=== PATIENT | female | born 1935 | race Caucasian/White ===

== ENCOUNTER 2023-06-25 15:39 | Observation (INO) | payer MEDICARE, SELFPAY ==
[2023-06-25] VITALS (18 sets, daily range): BP systolic 126–149; BP diastolic 55–75; PULSE 75–90; RESP 12–18; TEMP 36.4–37.5; O2SAT 95–100; BMI 18.9
--- NOTE | ~2023-06-25 | CT_ITS ---
EXAMINATION: CT brain wo con DATE: 06/25/2023 17:40 INDICATION: AMS . TECHNIQUE: Computed tomography (CT) of the head was performed without intravenous contrast. The mA wa s adjusted according to patient size. Iterative reconstruction technique was employed. The dose-lengt h product was 681.00 mGy-cm. COMPARISON: None. FINDINGS: No acute intracranial hemorrhage or extra-axial fluid collection. No hydrocephalus, mass, or herniation. No acute ischemic infarct. Unremarkable dural venous sinus attenuation. No acute osseous abnormality. The aerated spaces are clear. Moderate atrophy and chronic white matter change. Atherosclerotic intracranial calcification. Bilater al lens replacements. IMPRESSION: No acute intracranial process. Reviewed, dictated and finalized at location K. RONMENTAL SERVICES TECHNICIAN
--- NOTE | ~2023-06-25 | CT_ITS ---
EXAMINATION: CT cervical spine wo con DATE: 06/25/2023 20:24 INDICATION: neck pain TECHNIQUE: Computed tomography (CT) of the cervical spine was performed without intravenous contrast. Automated exposure control and iterative reconstruction technique were employed. The dose-length pro duct was 152.22 mGy-cm. COMPARISON: None. FINDINGS: Vertebral Body Alignment: Intact. Craniocervical and atlantoaxial alignment: Moderate degenerative change. Alignment intact. Osseous structures/fracture: No evidence of a lytic or blastic process in the visualized spine. No e vidence of acute fracture. Chronic appearing type II odontoid fracture. Cervical soft tissues: The paraspinal soft tissues planes are maintained. Degenerative changes: No significant degenerative changes. IMPRESSION: Chronic appearing type II odontoid fracture. No acute fracture or traumatic malalignment in the cervical spine. Reviewed, dictated and finalized at location K. UCT TECHNOLOGY SCIENTIST
--- NOTE | ~2023-06-25 | XR_ITS ---
EXAMINATION: XR chest 1V portable Exam Date/Time: 06/25/2023 16:05 PIERCE AND SHAVE PRESS OPERATOR HISTORY: chest pain Comparison: None. RESULT: Lines, tubes, and devices: Surgical clips over the right upper quadrant. Lungs and pleura: Senescent changes, otherwise clear. Cardiomediastinal silhouette: Stable. Other: No acute osseous or upper abdominal finding. IMPRESSION: No acute cardiopulmonary process. Reviewed, dictated and finalized at location K. CE AND SHAVE PRESS OPERATOR
--- NOTE | ~2023-06-25 | CT_ITS ---
EXAMINATION: CTA brain carotid DATE: 06/25/2023 20:25 INDICATION: AMS TECHNIQUE: Computed tomographic angiography (CTA) of the head and neck was performed with 100 mL Omni paque-350 intravenous contrast. Automated exposure control and iterative reconstruction technique wer e employed. The dose-length product was 1153.22 mGy-cm. Maximum intensity projection and volume rende red 3D-reconstructions were created by the technologist on a separate workstation. COMPARISON: CT brain same date. FINDINGS: CTA HEAD: No large vessel occlusion, aneurysm, high flow vascular malformation, nidus or extravasation. Patent cerebral veins. Symmetric parenchymal enhancement. CTA NECK: Aortic arch and proximal great vessels: Minimal atherosclerotic calcifications at the visualized aort ic arch and proximal great vessels. Normal arch anatomy. Right common carotid, carotid bifurcation, and internal carotid artery: No plaque.There is 0% stenosi s of the proximal right internal carotid artery relative to normal distal artery lumen diameter (NASC ET criteria). Left common carotid, carotid bifurcation, and internal carotid artery: Minimal calcified plaque.There is 0% stenosis of the proximal left internal carotid artery relative to normal distal artery lumen d iameter (NASCET criteria). Vertebral arteries: No significant plaque or stenosis. Other findings: Chronic appearing type II odontoid fracture. Bilateral lens replacements. IMPRESSION: No acute large vessel infarct. No significant carotid or vertebral artery stenosis. Reviewed, dictated and finalized at location K. RT UNLOADER
--- NOTE | 2023-06-25 15:41 | ECG_ITS ---
Measurements Intervals [place] Rate: 77 P: 51 AL: 192 QRS: -35 QRSD: 94 T: 75 QT: 392 QTc: 444 Interpretive Statements SINUS RHYTHM WITH OCCASIONAL SUPRAVENTRICULAR PREMATURE COMPLEXES POOR R-WAVE PROGRESSION, POSSIBLE OLD aNTERIOR MYOCARDIAL INFARCTION INFERIOR MYOCARDIAL INFARCTION , PROBABLY OLD [40+ ms Q WAVE AND/OR ST/T ABNORMALITY IN II/aVF] NO PREVIOUS ECG AVAILABLE FOR COMPARISON Electronically Signed On 06-25-2023 20:19:25 HYPERBARIC TECHNOLOGIST by Vivian Wright M.D.
[2023-06-25 16:25] LABS: Basophils Percent Auto 0.1 % (0.2-1.2); Hematocrit 48.8 % (37.0-47.0); Hemoglobin 15.6 g/dL (12.0-15.0); Immature Granulocyte Absolute 0.02 K/mm3 (0.00-0.031); Immature Granulocyte Percent A 0.2 % (0-0.5); Lymphocytes Absolute Auto 0.83 K/mm3 (0.9-3.2); Lymphocytes Percent Auto 9.4 % (18.3-44.2); Mean Corpuscular Hemoglobin 28.8 pg (26-34); Mean Corpuscular Volume 90.2 fl (80-100); Mean Platelet Volume 10.3 fl (7.4-10.4); Monocytes Absolute Auto 0.7 K/mm3 (0.1-0.6); Monocytes Percent Auto 8.3 % (2.6-8.5); Neutrophils Absolute Auto 7.2 K/mm3 (1.3-6.7); Platelet Count Result 227 k/mm3 (150-375); Red Blood Count 5.41 M/mm3 (4.2-5.4); Red Cell Distribution Width 13.4 % (11.5-14.5); White Blood Count 8.8 K/mm3 (4.5-10.0)
[2023-06-25 16:37] LABS: Prothrombin Time 13.8 Seconds (11.1-14.7)
[2023-06-25 16:38] LABS: Partial Thromboplastin Time 32.8 SECONDS (22.3-36.8)
[2023-06-25 16:39] LABS: Alanine Aminotransferase 21 U/L (6-35); Albumin Level 4.4 g/dL (3.5-5.1); Alkaline Phosphatase 75 U/L (38-126); Anion Gap 11 mmol/L (8-16); Aspartate Amino Transferase 30 U/L (14-36); Bilirubin,Total 0.9 mg/dL (0.2-1.3); Blood Urea Nitrogen 17 mg/dL (7-17); Calcium 8.9 mg/dL (8.4-10.2); Carbon Dioxide 31 mmol/L (22-30); Chloride 98 mmol/L (98-107); Estimated CRCL calculation 37 ml/min; Estimated Glomerular Filt Rate > 60; Glucose 115 mg/dL (65-110); Potassium 3.7 mmol/L (3.4-5.0); Sodium 140 mmol/L (137-145)
[2023-06-25 16:51] LABS: Troponin I < 0.012 ng/mL (0.000-0.034)
[2023-06-25 17:42] LABS: Appearance Urine Clear (Clear); Bilirubin Urine Negative (Negative); Blood Urine Negative (Negative); Color Urine Yellow (Yellow); Glucose Urine UA Negative (Negative); Ketones Urine 1+ mg/dL (Negative); Leukocyte Esterase Ur Negative LEU/UL (Negative); Nitrate Urine Negative (Negative); Protein Urine Negative (Negative); Specific Grav Ur 1.022 (1.001-1.035); Urobilinogen Urine 0.2 mg/dL (<2.0); pH Urine 5.5 (5.0-9.0)
[2023-06-25 17:46] LABS: CRP 1.4 mg/dL (<1.0)
[2023-06-25 17:51] LABS: Add Urine Microscopic? NO
[2023-06-25] MEDS: SODIUM CHLORIDE 0.9% IV 500 ML 999 ML IV CONT (17:53)
--- NOTE | 2023-06-25 17:57 | ED.AMS ---
HPI - Altered Mental Status General Chief Complaint: Altered Mental Status Stated Complaint: lethargic Time Seen by Provider: 06/25/23 17:13 Source: patient and EMS Mode of arrival: EMS Limitations: altered mental status History of Present Illness HPI narrative: This is a 87 year old female that presents to the ER for altered mental status. Patient has been lethargic and not acting herself today. She has no complaints. Is unable to give any history. Related Data Home Medications Medication Instructions Recorded Confirmed divalproex 125 mg capsule,delayed 125 mg PO DAILY 06/25/23 06/25/23 release sprinkle (Depakote Sprinkles) donepezil 10 mg tablet 10 mg PO HS 06/25/23 06/25/23 estradiol 0.01% (0.1 mg/gram) 0.01 applic vaginal DAILY 06/25/23 06/25/23 vaginal cream (Estrace) hydrochlorothiazide 12.5 mg tablet 12.5 mg PO DAILY 06/25/23 06/25/23 memantine 10 mg tablet (Namenda) 10 mg PO DAILY 06/25/23 06/25/23 potassium chloride 20 mEq 20 meq PO DAILY 06/25/23 06/25/23 tablet,extended release(part/cryst) (Klor-Con M) Allergies Allergy/AdvReac Type Severity Reaction Status Date / Time No Known Allergies Allergy Verified 06/25/23 15:59 Review of Systems Review of Systems: ROS unobtainable: Yes unobtainable due to mental status PMFSH Past Medical History Medical History (Updated 06/25/23 @ 22:33 by Marilyn Becerra PA-C) Dementia Hypertension Surgical History Surgical History (Updated 06/25/23 @ 21:15 by Yesica Desir PA-C) Surgical history unknown Family History Family History (Updated 06/25/23 @ 21:15 by Yesica Desir PA-C) Other Family history unknown Social History Social History (Updated 06/25/23 @ 21:16 by Yesica Desir PA-C) Social History: Surrogate medical decision maker: Davian Nam, son. Code status: Do not resuscitate, comfort focused care. Smoking status: Unknown if ever smoked Alcohol intake: unknown Substance use: unknown Additional living arrangements comments: Resident at [facility]. Exam Narrative: GENERAL: Elderly, lethargic, and in no acute distress. HEAD: Normocephalic, atraumatic. EYES: PERRLA and EOMI. ENT: Nares clear, no rhinorrhea or epistaxis. Mucous membranes moist. Oropharynx without tonsillar hypertrophy exudate or other lesions. Bilateral TMs pearly donnelly non-bulging NECK: Nuchal rigidity. No adenopathy or masses. CHEST: Clear to auscultation. No respiratory distress. No wheezes rales or rhonchi HEART: Regular rate and rhythm. No murmur heard. Normal peripheral pulses. ABDOMEN: Soft, nontender, nondistended, normal active bowel sounds. EXTREMITIES: Normal range of motion. No edema. SKIN: Warm, dry, no rash. NEURO: No focal deficits. Alert and oriented x1. Follows some commands PSYCH: Normal mood and affect Course Consultations Consultation #1: Spoke with hospitalist about patient and workup who accepts admission Date: 06/25/23 Vital Signs Vital signs: Vital Signs Temperature 99.5 F 06/25/23 15:35 Pulse Rate 90 06/25/23 15:35 Respiratory Rate 16 06/25/23 15:35 Blood Pressure 136/55 L 06/25/23 15:35 Pulse Oximetry 98 06/25/23 15:35 Oxygen Delivery Room Air 06/25/23 15:35 Temperature 98.0 F 06/25/23 20:00 Pulse Rate 89 06/25/23 21:31 Respiratory Rate 13 06/25/23 21:31 Blood Pressure 139/66 06/25/23 21:31 Pulse Oximetry 99 06/25/23 21:31 Oxygen Delivery Room Air 06/25/23 15:39 MDM - Altered Mental Status MDM Narrative Medical decision making narrative: Patient presents to the ER for altered mental status. Patient lethargic, but without focal deficits, will follow commands. She is afebrile. Her vitals are stable. CBC shows mild hemoconcentration. Metabolic panel without concerning findings. Lactic acid is not elevated. UA without evidence of infection. Urine drug screen is negative. Influenza and COVID screens are negative. Chest x-ray without acute card
[2023-06-25 18:17] LABS: Lactic Acid Reflex 1.4 mmol/L (0.7-2.0)
[2023-06-25 19:08] LABS: Barbiturate Screen Urine Negative (Negative); Benzodiazepines Screen Urine Negative (Negative)
[2023-06-25 19:10] LABS: Ammonia < 9 umol/L (9-30)
[2023-06-25 19:28] LABS: Amphetamine Screen Urine Negative (Negative); Cannabinoid Screen Urine Negative (Negative); Cocaine Screen Urine Negative (Negative); Methadone Screen Urine Negative (Negative); Opiate Screen Urine Negative (Negative); Phencyclidine Screen Urine Negative (Negative)
[2023-06-25 19:36] LABS: Troponin I < 0.012 ng/mL (0.000-0.034)
--- NOTE | 2023-06-25 19:46 | PM.IMHP ---
H&P: HPI History of Present Illness Date/Time: 06/25/23 19:45 Chief Complaint: Altered mental status. Narrative: This is an 69-uolu-gyo-female with dementia who presented to the emergency department via EMS from [facility] for evaluation of altered mental status. The patient is not able to provide an accurate history and majority the following is obtained via a review of her electronic medical records as well as review of paperwork that accompanied her. As far as I can tell she has never been seen at this facility before. Attempts to reach her son via phone have been unsuccessful thus far. According to EMS, detention staff reported that she had been in bed all day and more lethargic than usual. There was no other information given. In route to the hospital EMS reports that they recorded a few short runs of nonsustained ventricular tachycardia while in bound to the hospital however she has had no dysrhythmias or even significant ectopy since arrival to the hospital. Initial vital signs include a pulse of 90, respiratory rate 16, blood pressure 136/55, pulse ox 98% room air, temperature 99.5?. Labs were significant for WBC count of 8.8, hemoglobin 15.6, hematocrit 40.8%, her neck is at 31, lactic acid 1.4, ammonia less than 9, CRP 1.4. Urine showed 1+ ketones but was otherwise unremarkable. Urine drug screen was negative. Valproic acid level was 15.1. Head CT, head and neck CTA, cervical spine CT, and chest x-ray were without acute findings. At the time my evaluation she is alert and does answer some questions in 1 to 2 words. She attempts to follow commands. She is unable to really verbalize any complaints. On exam she has nuchal rigidity with a positive Kernig sign. Interventional radiologist is gone for the day and she has been started on empiric antibiotics and antivirals with plans for LP tomorrow. Review of Systems Review of Systems: Unable to be obtained given clinical condition as detailed above. [facility] Past Medical History Medical History (Updated 06/25/23 @ 21:41 by Yesica Desir PA-C) Dementia Hypertension Surgical History Surgical History (Updated 06/25/23 @ 21:15 by Yesica Desir PA-C) Surgical history unknown Family History Family History (Updated 06/25/23 @ 21:15 by Yesica Desir PA-C) Other Family history unknown Social History Social History (Updated 06/25/23 @ 21:16 by Yesica Desir PA-C) Social History: Surrogate medical decision maker: Davian Nam, son. Code status: Do not resuscitate, comfort focused care. Smoking status: Unknown if ever smoked Alcohol intake: unknown Substance use: unknown Additional living arrangements comments: Resident at [facility]. Meds Home Medications and Allergies Allergies Allergy/AdvReac Type Severity Reaction Status Date / Time No Known Allergies Allergy Verified 06/25/23 15:59 Vital Signs Vital Signs - 24 hr 06/25/23 15:35 06/25/23 15:39 06/25/23 15:48 Temperature 99.5 F 97.6 F Pulse Rate 90 80 87 Respiratory Rate 16 16 18 Blood Pressure 136/55 L 144/67 H Pulse Oximetry 98 100 99 Oxygen Delivery Room Air Room Air 06/25/23 16:00 06/25/23 16:01 06/25/23 16:15 Temperature Pulse Rate 75 76 77 Respiratory Rate 12 13 16 Blood Pressure 138/67 Pulse Oximetry 95 97 97 Oxygen Delivery 06/25/23 16:16 Temperature Pulse Rate 79 Respiratory Rate 16 Blood Pressure 128/60 Pulse Oximetry 98 Oxygen Delivery Exam Narrative: General: Frail elderly female in the semi-Richardson position in bed in the semi-Richardson position. Weight: 53 kg. BMI: 19.4. HEENT: Normocephalic, atraumatic. PERRL, EOMI. Sclera anicteric. Dry mucous membranes. Oropharynx partially visualize, no erythema or exudate. Neck: Supple. Demonstrates some nuchal rigidity. No lymphadenopathy. No midline cervical tenderness. Respiratory: Respirations are nonlabored. Lung sounds are clear to auscultation. Cardiovascular: Regula
[2023-06-25 20:31] LABS: Erythrocyte Sedimentation Rate 1 mm/hr (0-20)
[2023-06-25] MEDS: cefTRIAXone 2 GM/NS 100 ML 2 GM/100 ML BAG IVPB (20:43)
[2023-06-25] MEDS: AMPICILLIN 2 GM/NS 100 ML 2 GM/100 ML BAG IVPB (20:44)
[2023-06-25] MEDS: VANCOMYCIN 1,250 MG/NS 250 ML 1,250 MG/250 ML BAG 166.67 MG IVPB (20:52)
[2023-06-25 20:53] LABS: Valproic Acid 15.1 ug/mL (50-120)
[2023-06-25 21:16] LABS: Influenza A QL RT-PCR Negative (Negative); Influenza B QL RT-PCR Negative (Negative); RSV RNA, RT-PCR Negative (Negative); SARS-CoV-2 RNA PCR Negative (Negative)
[2023-06-25 22:03] LABS: MRSA (PCR) NOT DETECTED (NOT DETECTE)
[2023-06-25 22:19] LABS: Troponin I < 0.012 ng/mL (0.000-0.034)
--- NOTE | 2023-06-25 23:08 | ADMGEN ---
This patient, Sunita Nam, was admitted to Medical Room 346-01. Patient/family oriented to hospital policies and general routines including ID bracelet, bed and alarms, visiting hours, pain management, procedures, bathroom and other care routines, personal items, smoking policy, room service/diet, and visiting hours. Information on how to activate the Rapid Response Team has been discussed. Patient/Family are encouraged to report perceived risks to care and to ask questions if they do not understand what they are told or what they should do.
[2023-06-26] VITALS (9 sets, daily range): BP systolic 128–153; BP diastolic 42–78; PULSE 69–83; RESP 17–21; TEMP 36.6–37.1; O2SAT 98–100; BMI 18.8
--- NOTE | 2023-06-26 03:18 | PC.NURSE ---
The patient responded to me for the first time. Has some trouble following commands but tries. She is answering me sentences now. When she first arrived she would only say huh to her name and didnt respond to anything else.
[2023-06-26] MEDS: AMPICILLIN 2 GM/NS 100 ML 2 GM/100 ML BAG IVPB ×2 (05:24→13:07)
[2023-06-26 05:43] LABS: Basophils Percent Auto 0.2 % (0.2-1.2); Hematocrit 47.4 % (37.0-47.0); Hemoglobin 15.2 g/dL (12.0-15.0); Immature Granulocyte Absolute 0.01 K/mm3 (0.00-0.031); Immature Granulocyte Percent A 0.2 % (0-0.5); Lymphocytes Absolute Auto 0.56 K/mm3 (0.9-3.2); Lymphocytes Percent Auto 9.8 % (18.3-44.2); Mean Corpuscular HGB Conc 32.1 g/dl (32-36); Mean Corpuscular Hemoglobin 28.8 pg (26-34); Mean Corpuscular Volume 89.8 fl (80-100); Mean Platelet Volume 10.8 fl (7.4-10.4); Monocytes Absolute Auto 0.2 K/mm3 (0.1-0.6); Monocytes Percent Auto 3.3 % (2.6-8.5); Neutrophils Absolute Auto 4.9 K/mm3 (1.3-6.7); Neutrophils Percent Auto 86.5 % (45.5-73.1); Platelet Count Result 213 k/mm3 (150-375); Red Blood Count 5.28 M/mm3 (4.2-5.4); Red Cell Distribution Width 13.2 % (11.5-14.5); White Blood Count 5.7 K/mm3 (4.5-10.0)
[2023-06-26 06:05] LABS: Potassium 3.7 mmol/L (3.4-5.0)
[2023-06-26 06:06] LABS: Alanine Aminotransferase 20 U/L (6-35); Albumin Level 4.3 g/dL (3.5-5.1); Alkaline Phosphatase 73 U/L (38-126); Anion Gap 11 mmol/L (8-16); Aspartate Amino Transferase 34 U/L (14-36); Bilirubin,Total 0.6 mg/dL (0.2-1.3); Blood Urea Nitrogen 11 mg/dL (7-17); Carbon Dioxide 28 mmol/L (22-30); Chloride 99 mmol/L (98-107); Estimated CRCL calculation 55 ml/min; Estimated Glomerular Filt Rate > 60; Glucose 142 mg/dL (65-110); Magnesium 2.1 mg/dL (1.6-2.3); Sodium 138 mmol/L (137-145)
[2023-06-26] MEDS: MEMANTINE 10 MG TABLET PO (09:32)
[2023-06-26] MEDS: DIVALPROEX SODIUM SPRINKLE 125 MG CAP.DR PO (09:32)
[2023-06-26] MEDS: cefTRIAXone 2 GM/NS 100 ML 2 GM/100 ML BAG IVPB (09:33)
--- NOTE | 2023-06-26 11:59 | PC.NURSE ---
Voice message left for son.
--- NOTE | 2023-06-26 12:19 | PC.NURSE ---
Spoke with Saturnino at [facility]. She has faxed over medication list and DNR paperwork.
--- NOTE | 2023-06-26 13:30 | PM.IMPN ---
Progress Note: A&P Assessment and Plan (1) Encephalopathy: Code(s): G93.40 - Encephalopathy, unspecified Status: Acute Assessment and Plan: Etiology of her encephalopathy is not entirely clear. Brain CT did not show any acute findings. Her urine drug screen was negative. She is on Depakote for behavioral disturbances and her valproic acid level is not toxic. Infection is a consideration although she has been afebrile since arrival and she has a normal white blood cell count with a very minimally elevated CRP. Urinalysis and chest x-ray were without evidence of infection. CT cervical spine with chronic type 2 odontoid fracture CTA head neck without acute intracranial process. She does however have nuchal rigidity and a positive Kernig sign thus meningitis and encephalitis are in the differential diagnosis. Patient started on empiric antibiotics and IV acyclovir on on 06/25/2023. This was discontinued on 06/26/2023 due to patient not having a white count, lactic normal, procalcitonin normal, and denies any neck pain. Neck stiffness could very well be musculoskeletal. COVID, influenza, and RSV negative. At baseline patient is oriented to self. (2) Dehydration: Code(s): E86.0 - Dehydration Status: Acute Assessment and Plan: 06/26/23 IV fluids for 24 hours then discontinue. (3) Dementia: Code(s): F03.90 - Unspecified dementia, unspecified severity, without behavioral disturbance, psychotic disturbance, mood disturbance, and anxiety Status: Acute Assessment and Plan: At baseline patient is alert oriented to self. She is mobile on her feet. (4) Hypertension: Code(s): I10 - Essential (primary) hypertension Status: Acute Assessment and Plan: She will be monitor on telemetry as EMS reports a couple of brief nonsustained runs of ventricular tachycardia however she has not had any dysrhythmias since hospital arrival. Subjective Date/time seen: 06/26/23 13:30 Interval history: Patient is alert oriented to self and this is her baseline. She is unable to follow directions. She did appear to have some nuchal rigidity although this could be musculoskeletal. She does not complain of any pain or feelings nausea, vomiting, chest pain, shortness a breath, visual changes, headache or pain with urination. Adamantly that meningitis is likely in the patient and will discontinue antibiotic therapy and IV acyclovir. Will monitor the patient for worsening signs or symptoms. Exam Narrative: GENERAL: Comfortable, no acute distress HENMT: moist mucous membranes EYES: EOM intact b/l RESPIRATORY: clear to auscultation CARDIO: RRR GI: soft, nontender, bowel sounds present SKIN: no rashes EXTREMITIES: no edema, redness or tenderness NEURO: nuchal rigidity Objective Data Vital Signs Vital Signs: Vital Signs - 24 hr 06/25/23 15:35 06/25/23 15:39 06/25/23 15:48 Temperature 99.5 F 97.6 F Pulse Rate 90 80 87 Respiratory Rate 16 16 18 Blood Pressure 136/55 L 144/67 H Pulse Oximetry 98 100 99 Oxygen Delivery Room Air Room Air 06/25/23 16:00 06/25/23 16:01 06/25/23 16:15 Temperature Pulse Rate 75 76 77 Respiratory Rate 12 13 16 Blood Pressure 138/67 Pulse Oximetry 95 97 97 Oxygen Delivery 06/25/23 16:16 06/25/23 17:00 06/25/23 18:00 Temperature Pulse Rate 79 80 86 Respiratory Rate 16 16 15 Blood Pressure 128/60 126/63 149/69 H Pulse Oximetry 98 97 100 Oxygen Delivery 06/25/23 19:00 06/25/23 20:00 06/25/23 21:31 Temperature 98.0 F Pulse Rate 80 79 89 Respiratory Rate 13 12 13 Blood Pressure 145/66 H 134/75 139/66 Pulse Oximetry 100 98 99 Oxygen Delivery 06/25/23 17:31 06/25/23 18:01 06/25/23 19:16 Temperature Pulse Rate 85 81 81 Respiratory Rate 14 18 14 Blood Pressure 149/69 H 140/62 Pulse Oximetry 100 99 97 Oxygen Delivery 06/25/23 20:01 06/25/23 20:46 06/25/23 22:53 Temperature 98.1 F
[2023-06-26] MEDS: DONEPEZIL HCL 10 MG TABLET PO (20:22)
[2023-06-26] MEDS: MELATONIN 5 MG TABLET PO (20:22)
[2023-06-27] VITALS: PULSE 74
[2023-06-27 04:00] VITALS: PULSE 62
[2023-06-27 05:53] LABS: Basophils Percent Auto 0.3 % (0.2-1.2); Eosinophils Percent Auto 0.2 % (0-4.4); Hematocrit 43.9 % (37.0-47.0); Hemoglobin 14.1 g/dL (12.0-15.0); Immature Granulocyte Absolute 0.02 K/mm3 (0.00-0.031); Immature Granulocyte Percent A 0.3 % (0-0.5); Lymphocytes Absolute Auto 1.74 K/mm3 (0.9-3.2); Lymphocytes Percent Auto 26.1 % (18.3-44.2); Mean Corpuscular HGB Conc 32.1 g/dl (32-36); Mean Corpuscular Volume 90.1 fl (80-100); Mean Platelet Volume 10.5 fl (7.4-10.4); Monocytes Absolute Auto 0.8 K/mm3 (0.1-0.6); Monocytes Percent Auto 12.5 % (2.6-8.5); Neutrophils Percent Auto 60.6 % (45.5-73.1); Platelet Count Result 195 k/mm3 (150-375); Red Blood Count 4.87 M/mm3 (4.2-5.4); Red Cell Distribution Width 13.2 % (11.5-14.5); White Blood Count 6.7 K/mm3 (4.5-10.0)
[2023-06-27 06:00] VITALS: BP 147/55; PULSE 56; RESP 21; TEMP 37.1; O2SAT 100
[2023-06-27 06:08] LABS: Alanine Aminotransferase 18 U/L (6-35); Alkaline Phosphatase 65 U/L (38-126); Anion Gap 6 mmol/L (8-16); Aspartate Amino Transferase 29 U/L (14-36); Bilirubin,Total 0.7 mg/dL (0.2-1.3); Blood Urea Nitrogen 13 mg/dL (7-17); Calcium 8.8 mg/dL (8.4-10.2); Carbon Dioxide 31 mmol/L (22-30); Chloride 100 mmol/L (98-107); Estimated CRCL calculation 47 ml/min; Estimated Glomerular Filt Rate > 60; Glucose 101 mg/dL (65-110); Potassium 3.2 mmol/L (3.4-5.0); Sodium 137 mmol/L (137-145)
[2023-06-27 08:00] VITALS: PULSE 63
[2023-06-27 08:29] LABS: Glucose Point of Care 103 mg/dl (65-105)
[2023-06-27] MEDS: DIVALPROEX SODIUM SPRINKLE 125 MG CAP.DR PO (09:21)
[2023-06-27] MEDS: MEMANTINE 10 MG TABLET PO (09:21)
[2023-06-27] MEDS: MAGNESIUM OXIDE 400 MG TABLET PO (09:21)
[2023-06-27 11:55] LABS: Glucose Point of Care 98 mg/dl (65-105)
[2023-06-27 12:00] VITALS: PULSE 78
--- NOTE | 2023-06-27 12:04 | PM.DS ---
DS: Admitting Diagnosis Discharge Date 07/07/23 Admitting Diagnosis Altered mental status DS: Discharge Diagnosis Discharge Diagnosis (1) Encephalopathy: Code(s): G93.40 - Encephalopathy, unspecified Status: Acute (2) Dehydration: Code(s): E86.0 - Dehydration Status: Acute (3) Dementia: Code(s): F03.90 - Unspecified dementia, unspecified severity, without behavioral disturbance, psychotic disturbance, mood disturbance, and anxiety Status: Acute (4) Hypertension: Code(s): I10 - Essential (primary) hypertension Status: Acute DS: Summary Hospital Course Hospital Course: This is an 87-year-old female with a past medical history of dementia and hypertension that presented to the ED on 06/25/2023 due to altered mental status and lethargy. Her labs were pretty unremarkable upon presentation with a normal lactic, ammonia and CRP. Her urine was also clear. Urine drug screen negative. Valproic acid level was within normal limits. Her head CT and CTA as well as CT cervical spine did not explain acute symptoms. Chest x-ray without acute cardiopulmonary process. She did have some nuchal rigidity and there was some concern for meningitis. Antibiotics and IV antiviral was discontinued and patient was observed for 24 hours. She was at her baseline which is alert and oriented to self. Her white count remained normal as well as her vital signs. She worked with therapy and remained at her baseline. Plan to return to living facility. Time Spent with Patient Time attestation: Total time spent providing and/or coordinating discharge services: Exam Narrative: GENERAL: Comfortable, no acute distress HENMT: moist mucous membranes EYES: EOM intact b/l RESPIRATORY: clear to auscultation CARDIO: RRR GI: soft, nontender, bowel sounds present SKIN: no rashes EXTREMITIES: no edema, redness or tenderness NEURO: nuchal rigidity DS: Data Data Completed and Pending Labs on day of discharge: Labs from last 24 hours 06/27/23 06/27/23 06/27/23 11:44 08:14 05:30 WBC 6.7 RBC 4.87 Hgb 14.1 Hct 43.9 MCV 90.1 MCH 29.0 MCHC 32.1 RDW 13.2 Plt Count 195 MPV 10.5 H Immature Gran % (Auto) 0.3 Neut % (Auto) 60.6 Lymph % (Auto) 26.1 Hunt % (Auto) 12.5 H Eos % (Auto) 0.2 Baso % (Auto) 0.3 Lymph # (Auto) 1.74 Hunt # (Auto) 0.8 H Eos # (Auto) 0.0 Baso # (Auto) 0.0 Abs Immat Gran (auto) 0.02 Absolute Neuts (auto) 4.0 Absolute Nucleated RBC 0.0 Nucleated RBC % 0.0 Sodium 137 Potassium 3.2 L Chloride 100 Carbon Dioxide 31 H Anion Gap 6 L BUN 13 Creatinine 0.60 L Estim Creat Clear Calc 47 Estimated GFR > 60 Glucose 101 POC Capillary Glucose 98 103 Calcium 8.8 Total Bilirubin 0.7 AST 29 ALT 18 Alkaline Phosphatase 65 Total Protein 6.0 L Albumin 4.0 Preliminary micro results at discharge 06/25/23 18:51 Blood Culture - Preliminary Blood 06/25/23 18:51 Blood Culture - Preliminary Blood Discharge Plan Discharge Attending physician on discharge: Rio Watkins Consulting providers: Marilyn Becerra Discharging Clinician: Carmela Mccain Patient Disposition: [facility] Living Activity: as tolerated Diet: regular Discharge Instructions: Discharge disposition: Take medications as prescribed Monitor blood pressures Avoid social areas, you wear a mask when in social settings Encouraged to continue with yearly vaccinations Return to the emergency department if he developed sudden shortness of breath, chest pain, nausea, vomiting, upset stomach or intractable diarrhea Return to the emergency department if you develop fever greater than 100.4 Follow-up with the primary care physician within 1-2 weeks Thank you for [facility] for your healthcare needs Patient Instructions: Antibiotic Form Stand Clark
[2023-06-27 13:36] LABS: SARS-CoV-2 RNA PCR Negative (Negative)
== END 2023-06-27 14:33 ==
LOC: ANHED 18:47 → ANH3MED 22:14
PROVIDERS: Emergency Medicine; Internal Medicine Critical Care Medicine; Physician Assistant; Admitting Provider Internal Medicine; Emergency Provider Physician Assistant; Visit Provider Family Medicine
DX: G93.40 Encephalopathy, unspecified (principal); E86.0 Dehydration; F03.90 Unspecified dementia, unspecified severity, without behavioral disturbance, psychotic disturbance, mood disturbance, and anxiety; I10 Essential (primary) hypertension; I25.2 Old myocardial infarction; R94.31 Abnormal electrocardiogram [ECG] [EKG]; Z20.822 Contact with and (suspected) exposure to COVID-19; Z66 Do not resuscitate; Z79.890 Hormone replacement therapy; Z79.899 Other long term (current) drug therapy
CPT/HCPCS: 36415; 70450; 70496; 70498; 71045; 72125; 80053; 80164; 80307; 81003; 82140; 82607; 82948; 83605; 83735; 84443; 84484; 85025; 85610; 85652; 85730; 86140; 87040; 87635; 87637; 87641; 93005; 96361; 96365; 96366; 96367; 96375; 97165; 99285; A9270; G0378; J0133; J0290; J0696; J1100; J3370; J7040; Q9967